=== PATIENT | female | born 1995 ===

== ENCOUNTER 2023-11-21 20:53 | Emergency (ER) | payer OTHER ==
[~2023-11-21] VITALS: Ht 175.3 cm; Wt 81.8 kg
[2023-11-21 20:54] VITALS: BP 130/94; PULSE 139; RESP 18; TEMP 98; O2SAT 98
== END 2023-11-21 21:35 ==
LOC: ER 20:54
DX: S80.212A Abrasion, left knee, initial encounter (principal); S80.211A Abrasion, right knee, initial encounter; V89.2XXA Person injured in unspecified motor-vehicle accident, traffic, initial encounter; Z88.8 Allergy status to other drugs, medicaments and biological substances; Y93.89 Activity, other specified; Y92.89 Other specified places as the place of occurrence of the external cause; Y99.8 Other external cause status
CPT/HCPCS: 99283